=== PATIENT | female | born 1950 | race Hispanic/Latino ===

== ENCOUNTER 2018-02-28 10:36 | Outpatient (CLI) | payer OTHER ==
--- NOTE | 2018-02-28 19:17 | RAD ---
RIGHT FOOT THREE VIEWS: 02/28/18 A large calcaneal spur is present. No bony fracture, periosteal reaction, or other acute bony change was detected. The tarsal relations seem normal. IMPRESSION: Calcaneal spur. POS: HOME
== END 2018-02-28 10:37 | disposition home or self-care (01) ==
LOC: BURRAD 10:36
PROVIDERS: ATTEND Physician Assistant
DX: M72.2 Plantar fascial fibromatosis (principal); M77.31 Calcaneal spur, right foot

== ENCOUNTER 2022-01-30 09:06 | Outpatient (CLI) | payer OTHER | END 2022-01-30 09:07 | disposition home or self-care (01) | LOC: BURRAD 09:06 | PROVIDERS: ATTEND Physician Assistant | DX: M79.622 Pain in left upper arm (principal); R22.32 Localized swelling, mass and lump, left upper limb ==